=== PATIENT | female | born 1955 | race Caucasian/White ===

== ENCOUNTER → 2016-05-14 | Outpatient (CLI) | payer MEDICARE, OTHER ==
[~2016-05-14] MED LIST: BENA40TA54
--- NOTE | 2016-05-14 17:30 | RADRPT ---
PROCEDURE: XR Right hip and pelvis. CLINICAL INDICATION: Right hip pain. Pelvic pain. Postop. TECHNIQUE: Two views. Frontal pelvis and lateral right hip. COMPARISON: 03/25/2016. FINDINGS: There is no fracture or dislocation. The soft tissues are normal. There is a right hip total arthroplasty which appears satisfactory. There is also a left hip arthroplasty which appears satisfactory. There is no lytic or blastic lesion. The upper pelvis is not completely included on the image. IMPRESSION: 1. Satisfactory postoperative appearance of both hips. 2. No acute abnormality. RPTAT: QQ .Alexandr Finch MD, MD Date Time Electronically viewed and signed by .Alexandr Finch MD, MD on 05/14/2016 17:30 .R/
--- NOTE | 2016-05-14 19:38 | HKNOTE ---
DATE OF SERVICE: 05/14/2016 Now 3 weeks out following revision of her right hip replacement. She complains of a great deal of p ain. SHE IS ALLERGIC TO JUST ABOUT EVERYTHING. The Percocet no longer helps her. This is about th e only medication short of Dilaudid, which she "can take." She also has a burning pain over the ant erolateral aspect of the left thigh (opposite from the operated hip). PHYSICAL EXAMINATION: VITAL SIGNS: Blood pressure 190/90, temperature 98.7. The patient's wound has healed beautifully. Not the slightest sign of infection. MANAGEMENT: The patient was given a prescription for Dilaudid 2 mg p.o. q.4h. p.r.n. and Neurontin 100 mg p.o. t.i.d. and she will be seen again in 3 weeks' time for reevaluation. Dictated By: SIXTO COOK/MARIELA Conf#: [id number] DID#: [id number]
== END | disposition home or self-care (01) ==
LOC: HKI 15:38
DX: Z47.1 Aftercare following joint replacement surgery (principal); Z96.641 Presence of right artificial hip joint; G89.18 Other acute postprocedural pain; M79.652 Pain in left thigh
CPT/HCPCS: 73502; G0463

== ENCOUNTER → 2016-05-28 | Outpatient (CLI) | payer MEDICARE, OTHER ==
--- NOTE | 2016-05-28 17:26 | HKNOTE ---
DATE OF SERVICE: 05/28/2016 HISTORY OF PRESENT ILLNESS: The patient is a 71-year-old female who presents today for 6 week postoperative visit for right hip revision surgery due to ASR recall. Since the surgery, the patient states that her pain is controlled with Dilaudid 2 mg. The patient had adverse reactions with previous pain medications. The patient continues using cane for assisted ambulation. Continues limping secondary to discomfort. The patient does have complaints of weakness primarily to the lateral side of the right hip. Denies any falls since she was last seen. The patient also has complaints of right knee pain. She has difficulty straightening her leg completely at the right knee in regard to extension. She has also noticed swelling to the right knee. She also has complaints that at times the knee can lock on her which can create pain and limited mobility. PHYSICAL EXAMINATION: VITAL SIGNS: Blood pressure 153/73, temperature 98.6, pulse 87, respiratory rate 12. Height is 5 feet 7 inches, weight 180 pounds. RIGHT HIP: Wound is healing well with well-healed surgical scarring. The patient is limping on examination. Able to ambulate independently but likes to use single point cane as this is more comfortable for her. She does have significant limited range of motion in regard to flexion and especially abduction. Normal sensory examination to light touch. RIGHT KNEE: There is lack of 5 degree extension of the right knee with moderately limited flexion to the knee. Clicking to the knee is palpated with flexion. Continued discomfort to the right knee with examination. ASSESSMENT AND PLAN: 1. Physical therapy prescription provided for the patient for outpatient right hip PT. 2. The patient will follow up at 3 months postoperative in regard to the right hip for further evaluation as well as monitoring cobalt chromium levels. 3. The patient may discontinue DVT prophylaxis as well as hip restrictions. 4. In regard to the right knee, MRI ordered by Dr. Lara today for further evaluation in regard to suspected meniscal tearing. 5. Continue anti-inflammatories as needed for any pain complaints. 6. The patient may continue a single point cane for assisted ambulation but advised to trial walking independently if she feels comfortable and confident. 7. Dr. Lara advises that the patient follow up in 4 weeks after she has MRI of the right knee for MRI review. All the restrictions that the patient was taught in the hospital to prevent dislocation are now being discontinued. The patient will continue to use a crutch or a cane in the opposite hand as necessary and will discontinue the same once comfort levels allow it. Extremes of motion, such as lifting one foot onto the opposite thigh to clip toenails, were discouraged for at least another 6 weeks since there is a still a small danger of dislocation occurring. Long- term care of the hip replacement was discussed with the patient. The advice given was that stressful activities should be avoided since they decrease the life expectancy of the implant. Activities to be avoided include all types of impact sports such as running, jogging, tennis, racquetball, badminton, football , baseball, horseback riding, and others. The patient was advised that heavy lifting (more than 40 pounds) is dangerous for the implant and that weight lifting, jumping from heights, and falls can cause serious damage to the implant. The patient's attention was drawn to page 47 of the Arthritis Book. The patient was given our standard plastic card containing instructions for the use of prophylactic antibiotics as a guideline should infection develop anywhere in the body, there be the need for manipulation or scoping of the genitourinary tract or gastrointestinal tract, or for prophylaxis for dentistry. These instructions pertain for the rest of the patient's life. Dictated By: JANET CHURCH for SIXTO LARA MD, KP/MARIELA Conf#: [id number] DID#: [id number] MTDD
== END | disposition home or self-care (01) ==
LOC: HKI 14:28
DX: Z47.89 Encounter for other orthopedic aftercare (principal); M25.561 Pain in right knee; M25.461 Effusion, right knee
CPT/HCPCS: G0463

== ENCOUNTER → 2016-06-17 | Outpatient (CLI) | payer MEDICARE ==
--- NOTE | 2016-06-17 18:26 | HKNOTE ---
DATE OF SERVICE: 06/17/2016 The patient comes in with the MRI scan of her right knee for review. The MRI obtained on 06/14/[address] Naveed Lynch as showing "Suspected oblique tear of the posterior horn of th e medial meniscus communicating with the middle third meniscus inferiorly. Severe chondromalacia of the patella. Small joint effusion." MANAGEMENT: The patient continues to have significant symptoms suggesting an internal derangement. She was advised that the MRI is a miraculous technology but has a 5% chance of missing pathology or seeing pathology that is not there. Given the fact that she continues to have significant symptoms in her knee, we discussed the possibility of doing an arthroscopic operation of the right knee. Bijan palacios has just recently recovered from her hip surgery, and I recommended that she wait maybe 2 months b efore we do it. The patient will decide whether she wishes to proceed now or delay for awhile. She will call if and when she wishes to consider proceeding with surgery. Otherwise, will see her as p er her previously given appointment. Dictated By: SIXTO COOK/MARIELA Conf#: [id number] DID#: [id number]
== END | disposition home or self-care (01) ==
LOC: HKI 14:18
DX: Z47.89 Encounter for other orthopedic aftercare (principal)
CPT/HCPCS: G0463

== ENCOUNTER → 2016-08-21 | Outpatient (CLI) | payer MEDICARE ==
--- NOTE | 2016-08-22 06:59 | HKNOTE ---
DATE OF SERVICE: 08/21/2016 The patient complains of pain in both hips and her right knee. The patient is known to have an inte rnal derangement of the right knee and will need to have an arthroscopic operation on the knee. She continues to have pain in both hips. In particular, she complains of pain in the right groin. She states that the pain is constantly present. She has not had any recent infections, but she feel s that she may have been "feverish." Note that this patient is extremely low quinonez and, if anything, under exaggerates her complaints. She has lost a great deal of weight, "because I am just not hungry." PHYSICAL EXAMINATION: EXTREMITIES: The patient walks with a severe antalgic/(?) gait. It is difficult for her to get up on the examination couch. RIGHT KNEE: Unchanged since the last time. RIGHT HIP: A full range of motion, but pain in the right groin at limits of motion. LEFT HIP: An excellent range of motion with minimal pain. VITAL SIGNS: Height 5 feet 7 inches, weight 180 pounds. Blood pressure 132/72, temperature 99.2. MANAGEMENT: Under sterile conditions, the right hip was aspirated of 6 mL of slightly blood-tinged clear fluid which is being sent for cell count, culture, and sensitivity. The aspiration was follow ed by an injection of 5 mL of 2% lidocaine into the right hip joint. This immediately gave her comp lete relief of pain in the right hip. IMAGING: Plain x-rays of her pelvis and right hip were reviewed. It is difficult to determine if t he right acetabular component is well-attached to the bone. PLAN: 1. The patient is being referred for a [place] MRI scan of the right hip. 2. CBC, sed rate, and C-reactive protein. 3. Serum cobalt and chromium. The patient will be seen again in a week's time for reevaluation. Dictated By: SIXTO COOK/MARIELA Conf#: [id number] DID#: [id number]
--- NOTE | 2016-08-22 09:30 | RADRPT ---
PROCEDURE: XR AP pelvis / bilateral hips. CLINICAL INDICATION: Hip pain TECHNIQUE: AP pelvis/lateral right and left hip views available for review. COMPARISON: 05/14/2016 FINDINGS: There are bilateral total hip replacements. There is normal mineralization, architecture and alignment. There is no evidence of loosening of th e prosthesis. There is no evidence of hardware failure. No fractures, dislocation or osseous lesions are identified. The joints are unremarkable. There are normal soft tissues. IMPRESSION: Bilateral total hip replacements. Otherwise unremarkable examination. RPTAT: HGDB .Asher Wright MD, MD Date Time Electronically viewed and signed by .Asher Wright MD, MD on 08/22/2016 09:30 .B/
== END | disposition home or self-care (01) ==
LOC: HKI 14:22
DX: M23.91 Unspecified internal derangement of right knee (principal); M25.552 Pain in left hip; M25.551 Pain in right hip
CPT/HCPCS: 20610; 73522; G0463

== ENCOUNTER → 2016-09-24 | Outpatient (CLI) | payer MEDICARE ==
--- NOTE | 2016-09-25 04:49 | HKNOTE ---
DATE OF SERVICE: 09/24/2016 HISTORY OF PRESENT ILLNESS: The patient continues to complain of pain in her right hip. There has been no change in the degree of pain. It has certainly not gotten any worse. She comes in for revi ew of her labs and her MRI scan. She continues to have pain in the right groin which she seems to g et with every step that she takes. Sometimes she gets the pain at night. She takes Dilaudid 2 mg 2 or 3 times a day. PHYSICAL EXAMINATION: She walks with a cane. She has an antalgic gait. Examination of the right t high shows no evidence of any swelling around the thigh or inflammation. LABORATORY DATA: Fluid aspirated from her right hip at the last visit is reported as showing no afia erobes or aerobic bacteria grown from the fluid. Neutrophils 68%. Sedimentation rate 35. C-reacti ve protein 2.45. The MARS-CAT scan of the right hip dated 09/10/[address] Lynch as showing "components intact. Acetabular prosthetic component appears intact. Posterolateral fluid collection which may be in continuity with joint trochanteric bursa measuring 10 x 7.5." I called Dr. Lynch to review these pictures with him. He does not see any evidence of loosening or nonbonding of the implants. MANAGEMENT: The patient is reassured there is no sign of infection. I am greatly concerned about t he fact that she has ongoing pain, and despite the MRI scan, I am worried that the socket may not be bonded properly to the bone. MANAGEMENT: The patient's surgery was relatively recent [April]. My recommendation is that we c ontincira with a conservative program and she her again in 4 months' time for reevaluation. If she co ntinues to have pain, I will probably refer her to a tertiary care center for reoperation on her rig ht hip. Dictated By: SIXTO COOK/MARIELA Conf#: [id number] DID#: [id number]
== END | disposition home or self-care (01) ==
LOC: HKI 14:58
DX: M25.551 Pain in right hip (principal)
CPT/HCPCS: G0463

== ENCOUNTER → 2017-01-20 | Outpatient (CLI) | payer MEDICARE ==
--- NOTE | 2017-01-20 17:29 | RADRPT ---
PROCEDURE: XR Pelvis and bilateral hips. CLINICAL INDICATION: Pelvic pain. Postop. TECHNIQUE: Four views. Frontal and lateral right hip. Frontal and lateral left hip. COMPARISON: 01/22/2016. FINDINGS: There are bilateral total hip arthroplasties. These appear satisfactory with no fracture, dislocati on or loosening. There is no lytic lesion. The soft tissues are normal. IMPRESSION: 1. Satisfactory postoperative appearance of the hips. RPTAT: QQ .Alexandr Finch MD, MD Date Time Electronically viewed and signed by .Alexandr Finch MD, MD on 01/20/2017 17:29 .R/
--- NOTE | 2017-01-21 04:39 | HKNOTE ---
DATE OF SERVICE: 01/20/2017 HISTORY OF MAIN COMPLAINT: The patient continues to complain of pain in her right hip, but it has very become very much worse since August and especially so in the past 1-1/2 months. The patient gets pain in the hip, 24/11. She walks with a cane and cannot go more than about 2 blocks. She gets pain with every step. She takes Dilaudid for the pain, and that does not give her sufficient relief. The pain is localized to the right groin with some radiation down the anterior thigh. PHYSICAL EXAMINATION: GENERAL: A 61-year-old female, who is slightly overweight. VITALS: Height foot 7. Weight 185 pounds. Blood pressure 140/70 and temperature 98.9. RIGHT HIP EXAMINATION: No external sign of infection or inflammation. The right hip has a full range of motion. Pain in the groin at the upper limits of motion. IMAGING: Plain x-rays of the right hip were obtained today. These show some lucency around the acetabular component but, if anything, less than on previous x-rays. DISCUSSION: The fixation for right acetabular component, I felt, was not satisfactory from the get go. This is because she had minimal pain to work with on the medial side of the socket. She is surprised that the socket has held up for so long following her surgery. I suspect that the socket has come loose and will need to be revised. We obviously have to rule out infection first. Under sterile conditions, multiple attempts were made to aspirate the right hip under local anesthetic, but despite the fact that I am fairly certain the needle was in the hip joint, no fluid could be obtained. MANAGEMENT: 1. She is being referred for an aspiration of the right hip under fluoroscopy. 2. MARS CT scan of the right hip is being ordered 3. CBC, sed rate, and C-reactive protein ordered. 4. The patient given a new prescription for Dilaudid. 5. She will be seen again in a week's time for re-evaluation. Dictated By: Percy Gann MD /ophelia/gina /Document#: [id number]
== END | disposition home or self-care (01) ==
LOC: HKI 13:57
DX: M25.551 Pain in right hip (principal)
CPT/HCPCS: 20610; 73522; G0463

== ENCOUNTER → 2017-02-05 | Outpatient (CLI) | payer MEDICARE ==
--- NOTE | 2017-02-05 15:13 | RADRPT ---
PROCEDURE: XR Right hip and pelvis. CLINICAL INDICATION: Right hip pain. Pelvic pain. TECHNIQUE: Two views. Frontal pelvis and lateral right hip. COMPARISON: 01/20/2017. FINDINGS: There are bilateral total hip arthroplasties which appears satisfactory. There is no dislocation or loosening. There is a recent nondisplaced fracture of the right inferior pubic ramus. There is no ot her fracture. There is no lytic or blastic lesion. The upper pelvis is not included on the images. IMPRESSION: 1. Satisfactory postoperative appearance of both hips. 2. Recent nondisplaced fracture of the right inferior pubic ramus. 3. Otherwise unremarkable study. RPTAT: QQ .Alexandr Finch MD, MD Date Time Electronically viewed and signed by .Alexandr Finch MD, on 02/05/2017 15:12 .R/
--- NOTE | 2017-02-06 11:06 | HKNOTE ---
DATE OF SERVICE: 02/05/2017 RADIOLOGY: Patient went to the [facility] for an aspiration of the right hip yesterday . The radiologist was only able to get "a very small amount of fluid from my hip." Fluid was sent for culture and sensitivity. Note that the CAT scan that she obtained on 01/27/2017 is reported as showing "a 16 x 12 mm area. The fluid was sent for culture and sensitivity. A CAT scan of the [facility] t hip obtained on 01/27/[address] Low Lynch as showing "the prosthesis is intact. " Fixation screw intact. Along the superomedial aspect of the prosthesis there is a 16 x 12 mm ar ea with no significant overlying cortical bone present. Weightbearing portion of the hip prosthesis , however, is firmly attached to the underlying acetabulum without prosthetic loosening. The femoral prosthetic component shows no fracture. No CAT scan evidence of prosthetic loosening. HISTORY OF MAIN COMPLAINT: Patient took a fall 1 week ago. She simply was standing speaking to a _ ____ when she suddenly felt a severe jab of pain in the joint. This caused her to fall. She landed on her right arm. She was taken to the [facility] and from there to the [facility] Room where she was found to have a fracture of her wrist and thumb. She subsequently was refer red to who applied a cast to the arm. PRESENT COMPLAINTS: The patient gets pain in the right groin with every step that she takes. She also has pain in the area of the inferior pubic ramus on the right side since she took the fall. IMAGING: Plain x-rays of the pelvis and right hip obtained today show that she has a recent undispl aced fracture of the right inferior pubic ramus. DISCUSSION: Despite the fact that the CAT scan of her right acetabulum shows good attachment to the bone, even if there is a 16 x 12 area with no significant overlying cortex medially. DIAGNOSIS: 1. Possible loose right total hip acetabular component with deficient medial wall. 2. Undisplaced fracture of the right inferior pubic ramus. DISCUSSION: Despite the benign appearance of the CAT scan, having observed this patient in the [facility] so long as to her hip revision in constant pain since 04/07/2016, I do believe that the acetabula r component is probably loose and in need of reconstruction. MANAGEMENT: The patient is being referred to Dr. Kyle Haley for an evaluation and for a consult ation and consideration for revision of the socket. The inferior pubic ramus fracture is not in any need of treatment. Patient was given a prescription for Dilaudid 2 mg twice a day for pain. Dictated By: SIXTO COOK/MARIELA Conf#: [id number] DID#: [id number]
== END | disposition home or self-care (01) ==
LOC: HKI 09:40
DX: S32.591D Other specified fracture of right pubis, subsequent encounter for fracture with routine healing (principal); W19.XXXD Unspecified fall, subsequent encounter
CPT/HCPCS: 73502; G0463

== ENCOUNTER → 2017-03-11 | Outpatient (CLI) | payer MEDICARE ==
--- NOTE | 2017-03-12 04:33 | HKNOTE ---
DATE OF SERVICE: 03/11/2017 HIP AND KNEE CLINIC CONSULTATION REFERRING PHYSICIAN: Remi Gann MD CHIEF COMPLAINT: Right hip pain. HISTORY OF PRESENT ILLNESS: The patient is a 61-year-old female who presents with a recent history of right total hip arthroplasty revision for ASR component failure and an associated metalosis with ALVAL reaction. The patient was doing well initially after her revision and even had normalization of her cobalt and chromium ions, but however, over the past several months, has noted persistent sev ere right hip pain. The pain has become so severe now she has actually fallen and fractured her upp er extremities. The pain is only responsive to Dilaudid for pain control, and is not relieved by an y other conservative measures. She denies any fever, chills or nausea, vomiting. PAST MEDICAL HISTORY: Hypertension. PAST SURGICAL HISTORY: As above. MEDICATIONS: 1. Benazepril 2. Neurontin. 3. Dilaudid p.r.n. ALLERGIES: 1. PENICILLIN. 2. NSAIDS. 3. NOVOCAIN. 4. TYLENOL. 5. SULFA DRUGS. 6. OXYCODONE. 7. COUMADIN. 8. LATEX. 9. TEGADERM. 10. ADHESIVE TAPES, EXCEPT FOR TRANSPORE TAPE. SOCIAL HISTORY: She does not smoke or drink. REVIEW OF SYSTEMS: Negative as per above. PHYSICAL EXAMINATION: GENERAL: Alert and oriented, no acute distress; however, she does appear to be uncomfortable becaus e of her right hip. RIGHT LOWER EXTREMITY: The skin is intact. There is mild tenderness to palpation, as well as a mil dly palpable fluctuant mass at the posterolateral right hip. Range of motion is significantly limit ed with severe pain upon hip flexion and internal rotation. There is approximately 10 mm of shorten ing of the right lower extremity. The limb is grossly neurovascularly intact. IMAGIN01/27/[address] shows a 16 x 12 mm area of bone loss around the superior and media l aspect of the acetabular prosthesis; however, both femoral and acetabular components appear to be very well fixed with no clear evidence of loosening. 09/10/2016 right hip MRI also demonstrates wel l placed and well fixed components; however, there is a 10 x 7 x 5 cm lateral fluid collection that is in continuity with both the joint and the trochanteric bursa. Serum labs collected 08/21/2016 sh ow cobalt levels of 1.7 (high), and chromium levels 3.3 (high). ESR equals 2, CRP equals 0.2. 100 08/2016 right hip aspiration shows total cell count of 20 with 68% neutrophils. 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 PLAN: 1. The patient instructed about all options, recommending surgical revision through modular compone nt exchange, converting it to a ceramic head, changing the acetabular cup only if it is noted to be loose upon direct examination. She is instructed that most likely this will result in a mild shorte valentino of the limb given the position of the components and the limitations of the ceramic neck length s. She was instructed about the risks of a revision including, but not limited to, pain, bleeding, infection, stiffness, dislocation, fracture, nerve vessel or tendon damage, loosening of the prosthe sis, persistent pain, need for multiple surgeries, nerve vessel or tendon damage, deep venous thromb osis with pulmonary embolism and the risks of anesthesia. She understands all these risks and stron gly wishes to proceed with surgery as stated. 2. Preoperative internal medicine clearance. 3. To the operating room for right total hip arthroplasty revision with conversion to a ceramic hea d and exchange of polyethylene socket liner versus revision of the socket as indicated. Dictated By: NAVI JACOBS/NTS Conf#: [id number] DID#: [id number] CC: SIXTO GANN MD;*EndCC*
== END | disposition home or self-care (01) ==
LOC: HKI 13:46
PROVIDERS: ATTEND Orthopaedic Surgery
DX: M25.551 Pain in right hip (principal); I10 Essential (primary) hypertension; Z88.0 Allergy status to penicillin; Z88.2 Allergy status to sulfonamides
CPT/HCPCS: G0463

== ENCOUNTER → 2017-03-23 | Outpatient (CLI) | END | disposition home or self-care (01) ==

== ENCOUNTER 2017-03-25 07:37 | Inpatient (IN) | payer MEDICARE ==
--- NOTE | 2017-03-19 07:07 | PREOPHP ---
DATE OF ADMISSION: 03/25/2017 The patient is to have surgery with Dr. Kyle Alfred 03/25/2017 at [facility] . CONSULTATION REQUESTED BY: Dr. Kyle Alfred. REASON FOR CONSULTATION: Medical evaluation and clearance of a 61-year-old woman about to undergo s urgery. Thank you, Dr. Alfred, for participating and allowing us to participate in the care of our patient. HISTORY OF PRESENT ILLNESS: Rach Sanchez, a 61, soon to be 62-year-old woman, has had issues with her hips. 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 In terms of past surgical history other than that, she has had torn ligaments right and left ankle which was operated on. She also fractured her right wrist and thumb which required surgical reduction and this was do ne earlier this year and her only medical hospitalization was for dehydration in 2006. And as menti billd above, she has fractured her right and left wrist as well. CURRENT MEDICATIONS: Include: 1. Benazepril 40 mg b.i.d. 2. She also takes Neurontin 100 mg t.i.d. 3. And some p.r.n. medications. ALLERGIES: SHE IS ALLERGIC TO: 1. PENICILLIN. 2. NOVOCAIN. 3. ALMOST ALL NONSTEROIDAL ANTI-INFLAMMATORY MEDICATIONS. 4. TYLENOL. 5. LATEX. 6. ADHESIVE TAPE. 7. COUMADIN. General health has been relatively good other than her joints. SOCIAL HISTORY: The patient is single, has no children. Does not smoke or drink alcohol nor does s he drink any coffee and usually has no difficulty sleeping at night. FAMILY HISTORY: Father at age 69 of an MS, mother 85, had issues with dementia subsequently as a result of that. In the extended family there is diabetes, heart, cancer and hypertension. No th yroid and no strokes to her knowledge. She has 2 sisters who are alive and well. REVIEW OF SYSTEMS HEENT: Periodic headaches. CARDIORESPIRATORY: Denies any chest pain or shortness of breath. GASTROINTESTINAL: No melena or hematemesis. GENITOURINARY: No urgency, frequency. GYNECOLOGIC: Post-menopause, up to date. MUSCULOSKELETAL: Positive for right hip pain. NEUROPSYCHIATRIC: Unremarkable. GENERAL HEALTH: As above. PHYSICAL EXAMINATION: VITAL SIGNS: The patient's blood pressure was 125/82, pulse was 73 and regular, respirations were 1 8, temperature 97.2, height 5 feet 7 inches, weight 182 pounds. GENERAL: The patient was noted to be a well-developed, well-nourished female, alert and cooperative , in no apparent acute distress, oriented to time, place and person. HEAD, EARS, EYES, NOSE AND THROAT: Head was atraumatic. Eyes: Pupils were equal, reactive to ligh t and accommodation. Fundi were benign. Tympanic membranes were unremarkable. Nose was negative. Mouth was unremarkable. Fair oral hygiene was present. NECK: Supple without any rigidity. Trachea was midline. Thyroid was unremarkable. Neck veins wer e flat. Carotid pulses were equal. No bruits were heard. BACK: Unremarkable. CHEST: Symmetrical. BREASTS AND AXILLARY: Did not reveal any masses. LUNGS: Clear to percussion and auscultation. HEART: PMI was at the fifth intercostal space at the midclavicular line. Regular sinus rhythm was noted. No significant murmurs, rubs, or gallops being elicited. ABDOMEN: Soft, good bowel sounds were noted. No significant organomegaly, masses, or tenderness. GENITALIA: Pelvirectal exam per risk management manager, up to date. EXTREMITIES: Did not reveal any clubbing or cyanosis. There was still a residual cast on the right wrist. Scars from prior surgery were noted. Peripheral pulses were physiologic. SKIN: Moist and warm without any eruptions. No gross lymphadenopathy was noted. NEUROLOGIC: Grossly intact. IMPRESSION: 1. 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 2. Fractured right wrist postop. 3. Hypertension. 4. Stable health. Review of laboratory and other data revealed the following: Patient's chemistry panel including zac ctrolytes, glucose, BUN, creatinine, calcium and phosphorus, liver function tests were basically nor mal. The patient's alkaline phosphatase was minimally elevated at 116, probably a bony etiology. S pacheco iron was slightly low. CBC, UA, PT and PTT were within normal limits. The patient's EKG was n ormal. Chest x-ray revealed a kyphotic deformity and degenerative joint disease, but no acute infil trates being noted. DISCUSSION: Dr. Alfred I see no contraindication in this patient undergoing current proposed surge ry under desired form of anesthesia and will follow her along with you during her stay at [facility]. Thank you again, Dr. Alfred, for participating and allowing us to participate in care of our patien t. Dictated By: DAVID GATICA MD SS/MARIELA Conf#: [id number] DID#: [id number]
[~2017-03-25] VITALS: Ht 170.2 cm; Wt 80.5 kg
[2017-03-25] VITALS (29 sets, daily range): BP systolic 108–172; BP diastolic 55–90; PULSE 66–105; RESP 10–41; Ht 170.2 cm; Wt 80.5 kg
[2017-03-25] MEDS ORDERED: BENA40TA41 PO (08:27)
[2017-03-25] MEDS ORDERED: GABA100C14 PO (08:28)
[2017-03-25] MEDS ORDERED: HYDR2TAB36 PO (08:29)
[2017-03-25] MEDS ORDERED: CHOL200073 PO (08:30)
[2017-03-25] MEDS ORDERED: CLINDAMYCIN 900 MG/D5W (PMX) 50 ML IVPB SCH (08:30)
[2017-03-25] MEDS ORDERED: ROCURONIUM 50 MG INJ ONE (08:38)
[2017-03-25] MEDS ORDERED: PROPOFOL 20 ML ONE (08:38)
[2017-03-25] MEDS ORDERED: DEXAMETHASONE 4 MG/ML 1 ML INJ ONE (08:39)
[2017-03-25] MEDS ORDERED: GLYCOPYRROLATE 0.4 MG INJ ONE (08:39)
[2017-03-25] MEDS ORDERED: MIDAZOLAM 1 MG/ML 2 ML INJ ONE (08:39)
[2017-03-25] MEDS ORDERED: NEOSTIGMINE 3 MG/3 ML SYRINGE ONE (08:39)
[2017-03-25] MEDS ORDERED: FENTAnyl 50 MCG/ML VIAL ONE (08:39)
[2017-03-25] MEDS ORDERED: ONDANSETRON 4 MG INJ ONE (08:39)
[2017-03-25] MEDS ORDERED: CEFAZOLIN 1 GM INJ ONE (08:39)
[2017-03-25] MEDS ORDERED: ETOMIDATE 20 MG INJ ONE (08:40)
[2017-03-25] MEDS ORDERED: morphine SULFATE/PF (10 MG/10 ML) INJ ONE (08:40)
[2017-03-25] MEDS ORDERED: PROPOFOL 100 ML ONE (08:40)
[2017-03-25] MEDS ORDERED: TRANEXAMIC ACID 1,000 MG in SOD CHLORIDE 0.9% 100 ML IV ONE ×4 (11:00)
--- NOTE | 2017-03-25 11:30 | HPN ---
Date/Time of Note Date/Time of Note DATE: 03/25/17 TIME: 11:29 Interval H&P Admission Note Pt. seen H&P reviewed: No system changes NAVI TEE Mar 25, 2017 11:29
[2017-03-25] MEDS ORDERED: TOBRAMYCIN 1.2 GM POWDER ONE (11:39)
[2017-03-25] MEDS ORDERED: POLYMYXIN B 500000 UNIT INJ ONE (11:39)
[2017-03-25] MEDS ORDERED: VANCOMYCIN 1 GM INJ ONE (11:39)
[2017-03-25] MEDS ORDERED: BACITRACIN 50000 UNITS INJ ONE ×2 (12:09→13:14)
[2017-03-25] MEDS ORDERED: CLINDAMYCIN 900 MG/D5W (PMX) 50 ML IVPB ONE (12:47)
[2017-03-25] MEDS ORDERED: POLYMYXIN/BACITRACIN 1L IRRIG ONE (13:21)
[2017-03-25] MEDS ORDERED: NALBUPHINE HCL (10 MG/1 ML) INJ IV PRN (13:30)
[2017-03-25] MEDS ORDERED: ZOLPIDEM 5 MG TAB PO PRN (13:30)
[2017-03-25] MEDS ORDERED: hydrALAzine 20 MG INJ IV PRN (13:30)
[2017-03-25] MEDS ORDERED: MEPERIDINE 25 MG INJ IV PRN (13:30)
[2017-03-25] MEDS ORDERED: MIDAZOLAM 1 MG/ML 2 ML INJ IV PRN (13:30)
[2017-03-25] MEDS ORDERED: DIPHENHYDRAMINE 50 MG INJ IV PRN ×2 (13:30)
[2017-03-25] MEDS ORDERED: ONDANSETRON 4 MG INJ IV PRN ×2 (13:30)
[2017-03-25] MEDS ORDERED: morphine 2 MG INJ IV PRN (13:30)
[2017-03-25] MEDS ORDERED: ALBUTEROL 0.083% (NEB) 2.5 MG/3 ML AMP HHN PRN (13:30)
[2017-03-25] MEDS ORDERED: NALOXONE (0.4 MG/ML) INJ IV PRN (13:30)
[2017-03-25] MEDS ORDERED: morphine 4 MG/ML VIAL IV PRN (13:30)
[2017-03-25] MEDS ORDERED: HYDROmorphONE (0.2 MG/ML) 10ML SYG IV PRN ×3 (13:30)
[2017-03-25] MEDS ORDERED: LABETALOL HCL 20MG INJ IV PRN (13:30)
[2017-03-25] MEDS ORDERED: IPRATROPIUM (NEB) 0.5 MG/2.5 ML AMP HHN PRN (13:30)
[2017-03-25] MEDS ORDERED: FENTAnyl 50 MCG/ML VIAL IV PRN ×3 (13:30)
[2017-03-25] MEDS ORDERED: TRIMETHOBENZAMIDE 100 MG/ML VIAL IM PRN ×2 (13:30)
[2017-03-25] MEDS ORDERED: EPHEDrine SULFATE 50 MG/5 ML SYG IV PRN (13:30)
[2017-03-25] MEDS ORDERED: SUGAMMADEX SODIUM 200 MG/2 ML VIAL IV ONE (14:22)
--- NOTE | 2017-03-25 14:45 | OPR ---
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 Operation/Procedure Performed 1) Right Total Hip Arthroplasty Revision (femoral and acetabular sides) 2) Right Sciatic Nerve Neuroplasty 3) Right Ilium Hardware Removal (3 iliac screws) 4) Right Hip Synovectomy (complete) 5) Right Hip Complex Layered Wound Closure (15 cm) Surgeon see signature line [employer] Tutu CHURCH Anesthesia Type: MAC, spinal Estimated Blood Loss: 50 - 100 ml's Transfusion none Specimen Femoral head (implant) Grafts/Implants Depuy Ultrex Polyethylene Liner (+4, neutral), Ceramic Head (+12, 36 mm) Tubes/Drains None Complications none Pt Condition Post Procedure: stable Disposition: PACU Procedure Description Indications for the procedure: Patient is a 62-year-old female who underwent right total hip arthroplasty for ASR cup metal ion reaction who presents with persistent swelling and disability and inability to ambulate, with elevated metal ion levels. Full orthopedic workup was obtained which revealed likely trunionosis vs cup loosening. The patient was given the options of continued conservative management versus surgical revision, recommending surgery. She was told surgical risks including but not limited to pain bleeding infection stiffness recurrent loosening, instability, malalignment, fracture, dislocation , limb length discrepancy, nerve / vessel / tendon damage, deep venous thrombosis with pulmonary embolism, and the risk of anesthesia. She understands all of her options and their inherent risks and benefits, is in a position to make an informed decision regarding her further care, and strongly wishes to proceed with surgery as stated Description of the procedure patient was taken to the surgical theater and placed in the supine position on the operating table all pressure points were padded appropriately and induction of general sedation was performed after successful insertion of spinal block. The patient was turned to the lateral position and secured with the peg board system. All pressure points were padded. The right hindquarter was then prepped and draped in a sterile manner. A full surgical timeout was performed, verifying patient name medical record number procedure surgical site and other distinguishing factors. Using a 10 blade scalpel 15 cm incision was made at the lateral hip longitudinally in line with the previous surgical incision. Subcutaneous tissues were dissected sharply down to ths fascial layer which was then incised in line with the skin incision. The sciatic nerve was identified, dissected free , and protected. Posterior capsulotomy was performed, and copious amounts of benign, clear fluid extruded. No evidence of infection was seen. The hip joint was dislocated and the femoral head was removed with the quinonez elevator and mallet , with care not to damage the trunion. The trunion appeared well preserved without significant damage. The femoral stem was inspected and noted to be well fixed and in good position. The acetabulum was exposed and the three acetabular screws were removed. The acetabular shell was then tested extensively, and noted to be very well fixed with no signs of loosening. The acetabular shell was noted to be in optimum position. The decision was made to proceed with modular component exchange only , to a pure ceramic head, with head-trunion sealent. The patient was informed preoperatively that a pure ceramic head would be used, even though the titanium sleeve is recommended in the revision setting; however, the patient developed problems with the previous tianium sleeve on the cobalt chrome trunion, therefore the decision was made to perform this different implantation, in order to avoid the morbidity of complete femoral stem removal. The patient agreed fully to this plan. Careful synovectomy was performed in the hip joint was copiously irrigated. The acetabulum was exposed and the final aceabular liner was impacted into position and locked appropriately. The pure ceramic head was forcefully impacted very forcefully onto the femoral trunion. The head-trunion interface was cleaned and dried, and then sealed circumferentially with Dermabond. The Dermabond was allowed to dry and the junction was further sealed with bone wax. Care was taken to assure the sealents did not interfere with the articulation. Meticulous hemostasis was achieved with compression electrocautery. The wound was copiously irrigated with lavage saline as well as dilute betadine - peroxide solutions. The capsule was then closed securely with #1 Vicryl figure- of-eight interrupted suture. The wound was further closed in layers using 3-0 Vicryl subdermal suture for the subdermal layer and running subcuticular 3-0 Monocryl suture for the skin. The incision was dressed with Dermabond and Aquacel Ag occlusive surgical dressing. The patient tolerated procedure well and there were no intraoperative complications. Patient emerged from anesthesia without difficulty and was transferred to the recovery room in stable and satisfactory condition with plans for transfer to the surgical floor. The findings and procedure were discussed with the patient's son at the conclusion of the case and according to the patient's wishes. NAVI TEE Mar 25, 2017 14:41
[2017-03-25] MEDS ORDERED: HYDROCODONE/APAP (10/325) TAB PO PRN (15:00)
[2017-03-25] MEDS: SENNA/DOCUSATE NA (8.6MG/50MG) TAB PO SCH ×2 (15:00→21:57)
[2017-03-25] MEDS ORDERED: ACETAMINOPHEN 500 MG TAB PO PRN (15:00)
[2017-03-25] MEDS ORDERED: MAGNESIUM HYDROXIDE 30ML CUP PO PRN (15:00)
[2017-03-25] MEDS ORDERED: CEFAZOLIN 1 GM/50 ML (PMX) 50 ML IVPB SCH (15:00)
--- NOTE | 2017-03-25 15:21 | CONS ---
Date/Time of Note Date/Time of Note DATE: 03/25/17 TIME: 15:06 Consult Date/Type/Reason Admit Date/Time Mar 25, 2017 at 07:37 Initial Consult Date 03/17/2017 Type of Consultation: internal medicine consultation Reason for Consultation pre-op medical evaluation and clearance Ordering Provider: NAVI ETE Subjective post op alert complaining of some congestion post op otherwise doing well Objective Vital Signs Date Time Temp Pulse Resp B/P Pulse Ox O2 Delivery O2 Flow Rate FiO2 03/25/17 14:47 98.1 03/25/17 14:46 76 14 137/68 100 Nasal Cannula 2.0 Exam vss stable heent negativ lungs some rhonchi cor regular rhythm Results/Medications Medications Current Medications Clindamycin HCl/ Dextrose (Cleocin 900 Mg/ D5W (Pmx)) 50 ml @ 50 mls/hr PREOP IVPB ; Start 03/25/17 at 08:30; Stop 03/25/17 at 23:00 Morphine Sulfate (morphine) 2 mg Q2H PRN IV PAIN LEVEL 1-5; Start 03/25/17 at 13:30 Morphine Sulfate (morphine) 4 mg Q2H PRN IV PAIN LEVEL 6-10; Start 03/25/17 at 13:30 Diphenhydramine HCl (Benadryl) 25 mg Q4H PRN IV PRURITUS; Start 03/25/17 at 13 :30 Nalbuphine HCl (Nubain) 10 mg Q4H PRN IV PRURITUS; Start 03/25/17 at 13:30 Ondansetron HCl (Zofran Inj) 4 mg Q6H PRN IV NAUSEA AND/OR VOMITING; Start at 13:30 Trimethobenzamide HCl (Tigan) 200 mg Q6H PRN IM NAUSEA AND/OR VOMITING; Start 03/25/17 at 13:30 Naloxone HCl (Narcan) 0.2 mg Q2M PRN IV FOR RESP RATE 8 OR LESS; Start at 13:30 Benazepril HCl (Lotensin) 40 mg BID PO ; Start 03/25/17 at 21:00 Cholecalciferol (Vitamin D) 2,000 unit DAILY PO ; Start 03/26/17 at 09:00 Gabapentin 100 mg 100 mg TID PO ; Start 03/25/17 at 21:00 Cefazolin Sodium (Ancef 1 Gm/50 ml (Pmx)) 50 ml @ 100 mls/hr Q8H IVPB ; Start 03/25/17 at 15:00; Stop 03/26/17 at 07:29; Status UNV Senna/Docusate Sodium (Senokot-S) 1 tab BID PO ; Start 03/25/17 at 15:00; Status UNV Simethicone (Mylicon) 80 mg TID PRN PO DISTENSION/GAS/BLOATING; Start at 15:00; Status UNV Magnesium Hydroxide (Milk Of Mag) 30 ml BID PRN PO CONSTIPATION; Start at 15:00; Status UNV Acetaminophen 1000 mg 1,000 mg Q4H PRN PO PAIN LEVEL 1-5; Start 03/25/17 at 15 :00; Status UNV Lactated Ringer's (Lr) 1,000 ml @ 100 mls/hr Q10H IV ; Start 03/25/17 at 14:45 ; Status UNV Aspirin (Ecotrin) 325 mg BID PO ; Start 03/26/17 at 09:00; Status UNV Acetaminophen/ Hydrocodone Bitart ([place]on (10/325)) 1 tab Q4H PRN PO PAIN; Start 03/25/17 at 15:00; Status UNV Hydromorphone HCl (Dilaudid) 1 mg Q3H PRN IV PAIN LEVEL 4-7; Start 03/25/17 at 15:00; Status UNV Assessment/Plan Chief Complaint/Hosp Course congestion post op thr revision right Problems: Additional Assessment/Plan post 2nd total hip revision right hip history of hypertension and djd DAVID GATICA MD Mar 25, 2017 15:19
[2017-03-25] MEDS: LACTATED RINGER'S 1,000 ML IV SCH (17:52)
[2017-03-25] MEDS ORDERED: BENAZEPRIL 40 MG TAB PO SCH (21:00)
[2017-03-25] MEDS: GABAPENTIN 100 MG CAP PO SCH (21:57)
[2017-03-25] MEDS: PATIENT'S OWN MEDICATION PO SCH (22:02)
[2017-03-25] MEDS: CLINDAMYCIN 600 MG/D5W (PMX) 50 ML IVPB SCH (22:02)
[2017-03-26] MEDS: LACTATED RINGER'S 1,000 ML IV SCH ×3 (00:45→20:45)
[2017-03-26] MEDS: HYDROmorphONE 1 MG/ML SYG IV PRN ×4 (03:56→21:24)
[2017-03-26 05:24] LABS: BASOPHILS % 0.1 % (0.0-2.0); HEMOGLOBIN 11.6 g/dl (12.0-16.0); LYMPHOCYTES # 1.4 10^3/ul (0.8-2.9); LYMPHOCYTES % 9.6 % (15.0-51.0); MEAN CORPUSCULAR HEMOGLOBIN 25.4 pg (29.0-33.0); MEAN CORPUSCULAR HGB CONC 32.2 g/dl (32.0-37.0); MEAN CORPUSCULAR VOLUME 78.8 fl (82.0-101.0); MEAN PLATELET VOLUME 10.7 fl (7.4-10.4); MONOCYTE # 0.7 10^3/ul (0.3-0.9); NEUTROPHIL # 12.2 10^3/ul (1.6-7.5); NEUTROPHILS % 84.8 % (39.0-77.0); PLATELET COUNT 307 10^3/UL (140-415); RED BLOOD COUNT 4.57 10^6/ul (4.20-5.40); RED CELL DISTRIBUTION WIDTH 13.5 % (11.5-14.5); WHITE BLOOD COUNT 14.3 10^3/ul (4.8-10.8)
[2017-03-26] MEDS: CLINDAMYCIN 600 MG/D5W (PMX) 50 ML IVPB SCH ×3 (05:33→21:24)
[2017-03-26 05:39] LABS: CREATININE 0.8 mg/dl (0.44-1.00); POTASSIUM 4.4 mmol/L (3.5-5.1)
[2017-03-26 07:52] VITALS: BP 122/75; RESP 18
[2017-03-26] MEDS: ASPIRIN (EC) 325 MG TAB PO SCH ×2 (08:50→21:20)
[2017-03-26] MEDS: PATIENT'S OWN MEDICATION PO SCH ×2 (08:51→21:20)
[2017-03-26] MEDS: HYDROmorphONE 2 MG TAB PO PRN (08:52)
[2017-03-26] MEDS: SENNA/DOCUSATE NA (8.6MG/50MG) TAB PO SCH ×2 (08:52→21:20)
[2017-03-26] MEDS: GABAPENTIN 100 MG CAP PO SCH ×3 (08:52→21:20)
[2017-03-26] MEDS: CHOLECALCIFEROL 2,000 UNIT CAP PO SCH (08:52)
--- NOTE | 2017-03-26 10:43 | CONS ---
Date/Time of Note Date/Time of Note DATE: 03/26/17 TIME: 10:38 Consult Date/Type/Reason Admit Date/Time Mar 25, 2017 at 07:37 Initial Consult Date 03/17/2017 Type of Consultation: internal medicine consultation Reason for Consultation medical f/u and management Ordering Provider: NAVI TEE Subjective complaining of cold sore on lip.hip doing well Objective Vital Signs Date Time Temp Pulse Resp B/P Pulse Ox O2 Delivery O2 Flow Rate FiO2 03/26/17 07:52 98.3 80 18 122/75 98 03/25/17 18:30 Room Air 03/25/17 16:33 21 03/25/17 15:06 2.0 Intake and Output 03/25/17 03/25/17 03/26/17 15:00 23:00 07:00 Intake Total 3000 ml 180 ml 2700 ml Output Total 350 ml 1800 ml 2300 ml Balance 2650 ml -1620 ml 400 ml Exam vss heent negative save for sore on upper r lip lungs cleat heart regular rhythm abdomen soft Results/Medications Result Diagram: 03/26/17 0445 03/26/17 0445 Results 24 hrs Laboratory Tests Test 03/26/17 04:45 White Blood Count 14.3 H Red Blood Count 4.57 # Hemoglobin 11.6 #L Hematocrit 36.0 #L Mean Corpuscular Volume 78.8 L Mean Corpuscular Hemoglobin 25.4 L Mean Corpuscular Hemoglobin Concent 32.2 Red Cell Distribution Width 13.5 Platelet Count 307 Mean Platelet Volume 10.7 #H Neutrophils % 84.8 H Lymphocytes % 9.6 L Monocytes % 5.0 Eosinophils % 0.0 Basophils % 0.1 Nucleated Red Blood Cells % 0.0 Neutrophils # 12.2 H Lymphocytes # 1.4 Monocytes # 0.7 Eosinophils # 0.0 Basophils # 0.0 Nucleated Red Blood Cells # 0.0 Sodium Level 138 Potassium Level 4.4 Chloride Level 105 Carbon Dioxide Level 24 Anion Gap 13 Blood Urea Nitrogen 17 Creatinine 0.80 Glucose Level 124 Calcium Level 9.0 Medications Current Medications Morphine Sulfate (morphine) 2 mg Q2H PRN IV PAIN LEVEL 1-5; Start 03/25/17 at 13:30 Morphine Sulfate (morphine) 4 mg Q2H PRN IV PAIN LEVEL 6-10; Start 03/25/17 at 13:30 Diphenhydramine HCl (Benadryl) 25 mg Q4H PRN IV PRURITUS; Start 03/25/17 at 13 :30 Nalbuphine HCl (Nubain) 10 mg Q4H PRN IV PRURITUS; Start 03/25/17 at 13:30 Ondansetron HCl (Zofran Inj) 4 mg Q6H PRN IV NAUSEA AND/OR VOMITING; Start at 13:30 Trimethobenzamide HCl (Tigan) 200 mg Q6H PRN IM NAUSEA AND/OR VOMITING; Start 03/25/17 at 13:30 Naloxone HCl (Narcan) 0.2 mg Q2M PRN IV FOR RESP RATE 8 OR LESS; Start at 13:30 Cholecalciferol (Vitamin D) 2,000 unit DAILY PO Last administered on 08:52; Admin Dose 2,000 UNIT; Start 03/26/17 at 09:00 Gabapentin (Neurontin) 100 mg TID PO Last administered on 03/26/17 08:52; Admin Dose 100 MG; Start 03/25/17 at 21:00 Senna/Docusate Sodium (Senokot-S) 1 tab BID PO Last administered on 03/26/17 08:52; Admin Dose 1 TAB; Start 03/25/17 at 15:00 Simethicone (Mylicon) 80 mg TID PRN PO DISTENSION/GAS/BLOATING; Start at 15:00 Magnesium Hydroxide 30 ml 30 ml BID PRN PO CONSTIPATION; Start 03/25/17 at 15: 00 Lactated Ringer's (Lr) 1,000 ml @ 100 mls/hr Q10H IV Last administered on 04:00; Admin Dose 100 MLS/HR; Start 03/25/17 at 14:45 Aspirin (Ecotrin) 325 mg BID PO Last administered on 03/26/17 08:50; Admin Dose 325 MG; Start 03/26/17 at 09:00 Hydromorphone HCl (Dilaudid) 1 mg Q3H PRN IV PAIN LEVEL 4-7 Last administered on 03/26/17 03:56; Admin Dose 1 MG; Start 03/25/17 at 15:00 Hydromorphone HCl 2 mg 2 mg Q4H PRN PO PAIN Last administered on 03/26/17 08: 52; Admin Dose 2 MG; Start 03/25/17 at 15:30 Clindamycin HCl/ Dextrose (Cleocin 600 Mg/ D5W (Pmx)) 50 ml @ 50 mls/hr Q8 IVPB Last administered on 03/26/17 05:33; Admin Dose 50 MLS/HR; Start 03/25/17 at 22:00 Patient Own Medication 1 ea BID PO Last administered on 03/26/17 08:51; Admin Dose 1 EA; Start 03/25/17 at 21:00 Assessment/Plan Chief Complaint/Hosp Course congestion post op thr revision right Problems: Additional Assessment/Plan plan will order zovirax and continue rest of medications doing well in general. thank you DAVID Harrison MD Mar 26, 2017 10:43
--- NOTE | 2017-03-26 11:57 | PN ---
Date/Time of Note Date/Time of Note DATE: 03/26/17 TIME: 11:55 Assessment/Plan VTE Prophylaxis VTE Prophylaxis Intervention: ambulation, SCD's, other Lines/Catheters IV Catheter Type (from Nrsg): Saline Lock Urinary Cath still in place: Yes Reason Cath still needed: skin wounds contaminated by urine Subjective 24 Hr Interval Summary Free Text/Dictation Rach is doing well after her right hip revision. She does report pain for which she has been taking oral pain medication. She is ambulatory with a walker. The dressing is clean and dry. There is no neurovascular deficit. She would like to stay 1 more day to do stairs before she goes home. She will be discharged tomorrow with home health care. Exam/Review of Systems Vital Signs Vitals Vital Signs Date Time Temp Pulse Resp B/P Pulse Ox O2 Delivery O2 Flow Rate FiO2 03/26/17 07:52 98.3 80 18 122/75 98 03/25/17 18:30 Room Air 03/25/17 16:33 21 03/25/17 15:06 2.0 Intake and Output 03/25/17 03/25/17 03/26/17 14:59 22:59 06:59 Intake Total 3000 ml 180 ml 2700 ml Output Total 350 ml 1800 ml 2300 ml Balance 2650 ml -1620 ml 400 ml Results Result Diagram: 03/26/17 0445 03/26/17 0445 Results 24 hrs Laboratory Tests Test 03/26/17 04:45 White Blood Count 14.3 H Red Blood Count 4.57 # Hemoglobin 11.6 #L Hematocrit 36.0 #L Mean Corpuscular Volume 78.8 L Mean Corpuscular Hemoglobin 25.4 L Mean Corpuscular Hemoglobin Concent 32.2 Red Cell Distribution Width 13.5 Platelet Count 307 Mean Platelet Volume 10.7 #H Neutrophils % 84.8 H Lymphocytes % 9.6 L Monocytes % 5.0 Eosinophils % 0.0 Basophils % 0.1 Nucleated Red Blood Cells % 0.0 Neutrophils # 12.2 H Lymphocytes # 1.4 Monocytes # 0.7 Eosinophils # 0.0 Basophils # 0.0 Nucleated Red Blood Cells # 0.0 Sodium Level 138 Potassium Level 4.4 Chloride Level 105 Carbon Dioxide Level 24 Anion Gap 13 Blood Urea Nitrogen 17 Creatinine 0.80 Glucose Level 124 Calcium Level 9.0 Medications Medications Current Medications Morphine Sulfate (morphine) 2 mg Q2H PRN IV PAIN LEVEL 1-5; Start 03/25/17 at 13:30 Morphine Sulfate (morphine) 4 mg Q2H PRN IV PAIN LEVEL 6-10; Start 03/25/17 at 13:30 Diphenhydramine HCl (Benadryl) 25 mg Q4H PRN IV PRURITUS; Start 03/25/17 at 13 :30 Nalbuphine HCl (Nubain) 10 mg Q4H PRN IV PRURITUS; Start 03/25/17 at 13:30 Ondansetron HCl (Zofran Inj) 4 mg Q6H PRN IV NAUSEA AND/OR VOMITING; Start at 13:30 Trimethobenzamide HCl (Tigan) 200 mg Q6H PRN IM NAUSEA AND/OR VOMITING; Start 03/25/17 at 13:30 Naloxone HCl (Narcan) 0.2 mg Q2M PRN IV FOR RESP RATE 8 OR LESS; Start at 13:30 Cholecalciferol (Vitamin D) 2,000 unit DAILY PO Last administered on 08:52; Admin Dose 2,000 UNIT; Start 03/26/17 at 09:00 Gabapentin (Neurontin) 100 mg TID PO Last administered on 03/26/17 08:52; Admin Dose 100 MG; Start 03/25/17 at 21:00 Senna/Docusate Sodium (Senokot-S) 1 tab BID PO Last administered on 03/26/17 08:52; Admin Dose 1 TAB; Start 03/25/17 at 15:00 Simethicone (Mylicon) 80 mg TID PRN PO DISTENSION/GAS/BLOATING; Start at 15:00 Magnesium Hydroxide 30 ml 30 ml BID PRN PO CONSTIPATION; Start 03/25/17 at 15: 00 Lactated Ringer's (Lr) 1,000 ml @ 100 mls/hr Q10H IV Last administered on 04:00; Admin Dose 100 MLS/HR; Start 03/25/17 at 14:45 Aspirin (Ecotrin) 325 mg BID PO Last administered on 03/26/17 08:50; Admin Dose 325 MG; Start 03/26/17 at 09:00 Hydromorphone HCl (Dilaudid) 1 mg Q3H PRN IV PAIN LEVEL 4-7 Last administered on 03/26/17 03:56; Admin Dose 1 MG; Start 03/25/17 at 15:00 Hydromorphone HCl 2 mg 2 mg Q4H PRN PO PAIN Last administered on 03/26/17 08: 52; Admin Dose 2 MG; Start 03/25/17 at 15:30 Clindamycin HCl/ Dextrose (Cleocin 600 Mg/ D5W (Pmx)) 50 ml @ 50 mls/hr Q8 IVPB Last administered on 03/26/17 05:33; Admin Dose 50 MLS/HR; Start 03/25/17 at 22:00 Patient Own Medication 1 ea BID PO Last administered on 03/26/17 08:51; Admin Dose 1 EA; Start 03/25/17 at 21:00 Acyclovir (Zovirax) 400 mg TID PO ; Start 03/26/17 at 13:00 YUKI NICOLE Mar 26, 2017 11:57
[2017-03-26] MEDS: ACYCLOVIR 400 MG TAB PO SCH ×2 (12:15→21:20)
[2017-03-26 14:51] VITALS: BP 130/68; RESP 21
[2017-03-26 19:35] VITALS: BP 126/67; RESP 18
[2017-03-27] MEDS: HYDROmorphONE 1 MG/ML SYG IV PRN ×2 (01:57→07:30)
[2017-03-27 02:00] VITALS: BP 145/70; RESP 18
[2017-03-27 05:20] LABS: BASOPHILS % 0.2 % (0.0-2.0); EOSINOPHILS # 0.2 10^3/ul (0.0-0.5); EOSINOPHILS % 1.6 % (0.0-7.0); HEMOGLOBIN 11.8 g/dl (12.0-16.0); LYMPHOCYTES # 3.3 10^3/ul (0.8-2.9); LYMPHOCYTES % 24.9 % (15.0-51.0); MEAN CORPUSCULAR HEMOGLOBIN 25.2 pg (29.0-33.0); MEAN CORPUSCULAR HGB CONC 31.9 g/dl (32.0-37.0); MEAN CORPUSCULAR VOLUME 78.9 fl (82.0-101.0); MEAN PLATELET VOLUME 10.6 fl (7.4-10.4); MONOCYTE # 1.1 10^3/ul (0.3-0.9); MONOCYTES % 8.6 % (0.0-11.0); NEUTROPHIL # 8.4 10^3/ul (1.6-7.5); NEUTROPHILS % 64.1 % (39.0-77.0); PLATELET COUNT 285 10^3/UL (140-415); RED BLOOD COUNT 4.69 10^6/ul (4.20-5.40); RED CELL DISTRIBUTION WIDTH 14.2 % (11.5-14.5); WHITE BLOOD COUNT 13.1 10^3/ul (4.8-10.8)
[2017-03-27 05:50] LABS: CREATININE 0.98 mg/dl (0.44-1.00); POTASSIUM 4.6 mmol/L (3.5-5.1)
[2017-03-27] MEDS: CLINDAMYCIN 600 MG/D5W (PMX) 50 ML IVPB SCH ×2 (06:36→13:38)
[2017-03-27] MEDS: LACTATED RINGER'S 1,000 ML IV SCH ×2 (06:45→16:45)
[2017-03-27] MEDS: HYDROmorphONE 2 MG TAB PO PRN ×2 (07:41→13:37)
[2017-03-27 07:52] VITALS: BP 131/73; RESP 18
[2017-03-27] MEDS: ASPIRIN (EC) 325 MG TAB PO SCH (08:39)
[2017-03-27] MEDS: ACYCLOVIR 400 MG TAB PO SCH ×2 (08:39→13:37)
[2017-03-27] MEDS: SENNA/DOCUSATE NA (8.6MG/50MG) TAB PO SCH (08:39)
[2017-03-27] MEDS: CHOLECALCIFEROL 2,000 UNIT CAP PO SCH (08:39)
[2017-03-27] MEDS: GABAPENTIN 100 MG CAP PO SCH ×2 (08:39→13:37)
[2017-03-27] MEDS: PATIENT'S OWN MEDICATION PO SCH (08:40)
--- NOTE | 2017-03-27 09:52 | PN ---
Date/Time of Note Date/Time of Note DATE: 03/27/17 TIME: 09:51 Assessment/Plan VTE Prophylaxis VTE Prophylaxis Intervention: ambulation, SCD's Lines/Catheters IV Catheter Type (from Nrsg): Saline Lock Conn in Place (from Nrsg): Yes Assessment/Plan Assessment/Plan -Pain Meds as needed -ASA for DVT Prophylaxis x 6 weeks outpatient discussed. -Continue monitoring as outpatient on discharge -Follow-up at scheduled postop outpatient appointment or sooner if there is any issue. -Hip precautions discussed -Patient Stable -Discharge to Home with home health Subjective 24 Hr Interval Summary 62-year-old female postop day 2 status post right total hip revision. Denies any acute overnight events. Pain currently controlled with pain medication. Denies any chest pain/tightness. Denies any calf pain. Exam/Review of Systems Vital Signs Vitals Vital Signs Date Time Temp Pulse Resp B/P Pulse Ox O2 Delivery O2 Flow Rate FiO2 03/27/17 07:52 98.1 82 18 131/73 96 03/25/17 18:30 Room Air 03/25/17 16:33 21 03/25/17 15:06 2.0 Intake and Output 03/26/17 03/26/17 03/27/17 15:00 23:00 07:00 Intake Total 750 ml 800 ml 700 ml Output Total 1000 ml 1800 ml Balance 750 ml -200 ml -1100 ml Exam Free Text/Dictation -No complications with dressing intact. -Thigh soft -5/5 Quadriceps, Tibialis Anterior, EHL Gastrocnemius/Soleus and Peroneals -Normal Sensation -Palpable DP/PT, Capillary Refill <2 secs -No Distal Edema -Negative Robert Sign/No calf pain -Toes Freely Movable Results Result Diagram: 03/27/17 0453 03/27/17 0453 JANET KRUGER PA-C Mar 27, 2017 09:52
--- NOTE | 2017-03-27 09:53 | PDOCDIS ---
Discharge Instructions DIAGNOSIS Discharge Diagnosis Status post right total hip revision CONDITION Patient Condition: Good HOME CARE INSTRUCTIONS: Diet Instructions: RegularSpecial Diet: REGULAR ACTIVITY: Activity Restrictions: Slowly Increase Activity Rest between Activity Avoid heavy lifting No Sexual Activity Do not Drive Do not operate Machinery Do not operate Power Tool Avoid Heavy Housework Keep Limb Elevated (May apply cold therapy to the wound.) Weight Bearing (Weight-bear as tolerated using front wheeled walker.) Bathing Restrictions: Shower (Keep surgical area dry and intact. Do not remove surgical dressing until postoperative appointment.) FOLLOW UP/APPOINTMENTS Follow-up Plan Follow-up at postoperative appointment provided to you at your preoperative visit. JANET KRUGER PA-C Mar 27, 2017 09:53
--- NOTE | 2017-03-27 10:07 | CONS ---
Date/Time of Note Date/Time of Note DATE: 03/27/17 TIME: 10:04 Consult Date/Type/Reason Admit Date/Time Mar 25, 2017 at 07:37 Initial Consult Date 03/17/2017 Type of Consultation: internal medicine consultation Reason for Consultation medical f/u Ordering Provider: NAVI TEE Subjective doingmuch better ambulating with pt Objective Vital Signs Date Time Temp Pulse Resp B/P Pulse Ox O2 Delivery O2 Flow Rate FiO2 03/27/17 07:52 98.1 82 18 131/73 96 03/25/17 18:30 Room Air 03/25/17 16:33 21 03/25/17 15:06 2.0 Intake and Output 03/26/17 03/26/17 03/27/17 15:00 23:00 07:00 Intake Total 750 ml 800 ml 700 ml Output Total 1000 ml 1800 ml Balance 750 ml -200 ml -1100 ml Exam vss heent negative lungs clear heart regular rhythm abd.soft Results/Medications Result Diagram: 03/27/17 0453 03/27/17 0453 Results 24 hrs Laboratory Tests Test 03/27/17 04:53 White Blood Count 13.1 H Red Blood Count 4.69 Hemoglobin 11.8 L Hematocrit 37.0 Mean Corpuscular Volume 78.9 L Mean Corpuscular Hemoglobin 25.2 L Mean Corpuscular Hemoglobin Concent 31.9 L Red Cell Distribution Width 14.2 Platelet Count 285 Mean Platelet Volume 10.6 H Neutrophils % 64.1 Lymphocytes % 24.9 Monocytes % 8.6 Eosinophils % 1.6 Basophils % 0.2 Nucleated Red Blood Cells % 0.0 Neutrophils # 8.4 H Lymphocytes # 3.3 H Monocytes # 1.1 H Eosinophils # 0.2 Basophils # 0.0 Nucleated Red Blood Cells # 0.0 Sodium Level 141 Potassium Level 4.6 Chloride Level 104 Carbon Dioxide Level 29 Anion Gap 13 Blood Urea Nitrogen 19 Creatinine 0.98 Glucose Level 100 Calcium Level 9.0 Medications Current Medications Morphine Sulfate (morphine) 2 mg Q2H PRN IV PAIN LEVEL 1-5; Start 03/25/17 at 13:30 Morphine Sulfate (morphine) 4 mg Q2H PRN IV PAIN LEVEL 6-10; Start 03/25/17 at 13:30 Diphenhydramine HCl (Benadryl) 25 mg Q4H PRN IV PRURITUS; Start 03/25/17 at 13 :30 Nalbuphine HCl (Nubain) 10 mg Q4H PRN IV PRURITUS; Start 03/25/17 at 13:30 Ondansetron HCl (Zofran Inj) 4 mg Q6H PRN IV NAUSEA AND/OR VOMITING; Start at 13:30 Trimethobenzamide HCl (Tigan) 200 mg Q6H PRN IM NAUSEA AND/OR VOMITING; Start 03/25/17 at 13:30 Naloxone HCl (Narcan) 0.2 mg Q2M PRN IV FOR RESP RATE 8 OR LESS; Start at 13:30 Cholecalciferol (Vitamin D) 2,000 unit DAILY PO Last administered on 08:39; Admin Dose 2,000 UNIT; Start 03/26/17 at 09:00 Gabapentin (Neurontin) 100 mg TID PO Last administered on 03/27/17 08:39; Admin Dose 100 MG; Start 03/25/17 at 21:00 Senna/Docusate Sodium (Senokot-S) 1 tab BID PO Last administered on 03/27/17 08:39; Admin Dose 1 TAB; Start 03/25/17 at 15:00 Simethicone (Mylicon) 80 mg TID PRN PO DISTENSION/GAS/BLOATING; Start at 15:00 Magnesium Hydroxide 30 ml 30 ml BID PRN PO CONSTIPATION; Start 03/25/17 at 15: 00 Lactated Ringer's (Lr) 1,000 ml @ 100 mls/hr Q10H IV Last administered on 04:00; Admin Dose 100 MLS/HR; Start 03/25/17 at 14:45 Aspirin (Ecotrin) 325 mg BID PO Last administered on 03/27/17 08:39; Admin Dose 325 MG; Start 03/26/17 at 09:00 Hydromorphone HCl (Dilaudid) 1 mg Q3H PRN IV PAIN LEVEL 4-7 Last administered on 03/27/17 01:57; Admin Dose 1 MG; Start 03/25/17 at 15:00 Hydromorphone HCl 2 mg 2 mg Q4H PRN PO PAIN Last administered on 03/27/17 07: 41; Admin Dose 2 MG; Start 03/25/17 at 15:30 Clindamycin HCl/ Dextrose (Cleocin 600 Mg/ D5W (Pmx)) 50 ml @ 50 mls/hr Q8 IVPB Last administered on 03/27/17 06:36; Admin Dose 50 MLS/HR; Start 03/25/17 at 22:00 Patient Own Medication 1 ea BID PO Last administered on 03/27/17 08:40; Admin Dose 1 EA; Start 03/25/17 at 21:00 Acyclovir (Zovirax) 400 mg TID PO Last administered on 03/27/17 08:39; Admin Dose 400 MG; Start 03/26/17 at 13:00 Assessment/Plan Chief Complaint/Hosp Course congestion post op thr revision right Problems: Additional Assessment/Plan patient going home today rx for zovirax and biaxin given. thank you DAVID Brooks MD Mar 27, 2017 10:07
[2017-03-27 14:59] VITALS: BP 140/73; RESP 18
--- NOTE | 2017-03-30 08:19 | DS ---
Date/Time of Note Date/Time of Note DATE: 03/30/17 TIME: 08:17 Discharge Summary Admission/Discharge Info Admit Date/Time Mar 25, 2017 at 07:37 Discharge Date/Time Mar 27, 2017 at 18:10 Discharge Diagnosis Status post right total hip revision Patient Condition: Good Hospital Course On the day of admission, the patient underwent right total hip revision Intraoperative complications: None Postoperative complications: None The patient was given prophylactic antibiotics and anticoagulants. On the day of surgery and first postoperative day patient was started on gait training and was taught usual restrictions following hip replacement On postoperative day 1 dressing was clean dry and intact. No complications were observed. On the day of discharge, the wound was clean and healing well; there was no sign of infection. Wound care instructions were discussed with the patient. Discharge Temperature: 98.9 Discharge White Blood Cell Count: 13.1 Discharge Hemoglobin: 11.8 The patient was discharged home with home health. Arrangements were made for visiting nurses and home health/physical therapy. The patient will be seen in office at scheduled postoperative evaluation date given on their preoperative exam. Should patient complain of any problems prior to scheduled postoperative evaluation date, they may call into outpatient clinic to determine if they need to be scheduled at sooner appointment to be seen immediately if needed. Discharge medications: As per medication reconciliation form Diet: Same as preadmission diet. This is Janet Armas PA-C dictating discharge summary for Dr. Alfred. Home Meds Reported Medications Cholecalciferol (Vitamin D3) (VITAMIN D-3) 2,000 Unit Capsule, 2000 UNIT PO DAILY, CAP 03/25/17 Hydromorphone Hcl* (Dilaudid*) 2 Mg Tablet, 2 MG PO TID Y for PAIN, TAB 03/25/17 Gabapentin* (Gabapentin*) 100 Mg Capsule, 100 MG PO TID, #90 CAP 03/25/17 Benazepril Hcl* (Benazepril Hcl*) 40 Mg Tablet, 40 MG PO BID, #30 TAB pt will take her own medication 03/25/17 Discontinued Reported Medications Benazepril Hcl* (Lotensin*) 40 Mg Tablet 02/22/13 Follow-up Plan Follow-up at postoperative appointment provided to you at your preoperative visit. Primary Care Provider Julia Thomas Pending Labs Laboratory Tests Test 03/29/17 10:19 Lab Scanned Report REFERENCE [id number] JANET KRUGER PA-C Mar 30, 2017 08:19
== END 2017-03-27 18:10 | disposition home health service (06) | DRG 468 ==
LOC: REC 07:37 → MS1 17:40
PROVIDERS: ADMIT Orthopaedic Surgery; ATTEND Orthopaedic Surgery
PROC: 0SP90JZ Removal of Synthetic Substitute from Right Hip Joint, Open Approach (ICD-10-PCS; 2017-03-25)
PROC: 0SR904A Replacement of Right Hip Joint with Ceramic on Polyethylene Synthetic Substitute, Uncemented, Open Approach (ICD-10-PCS; principal; 2017-03-25 11:00)
DX: T84.89XA Other specified complication of internal orthopedic prosthetic devices, implants and grafts, initial encounter (principal); Z96.643 Presence of artificial hip joint, bilateral; I10 Essential (primary) hypertension; T84.84XA Pain due to internal orthopedic prosthetic devices, implants and grafts, initial encounter; Y79.2 Prosthetic and other implants, materials and accessory orthopedic devices associated with adverse incidents
CPT/HCPCS: 80048; 85025; 86850; 86900; 86901; 87086; 88300; 94664; 97116; 97162; 97530; C1776; J0690; J1100; J1170; J1200; J2175; J2250; J2274; J2405; J2710; J3010; J3370; J7120

== ENCOUNTER → 2017-04-15 | Outpatient (CLI) | END | disposition home or self-care (01) ==

== ENCOUNTER → 2017-07-15 | Outpatient (CLI) | END | disposition home or self-care (01) ==

== ENCOUNTER → 2017-08-10 | Outpatient (CLI) | END | disposition home or self-care (01) ==

== ENCOUNTER → 2017-11-02 | Outpatient (CLI) | END | disposition home or self-care (01) ==

== ENCOUNTER → 2017-11-03 | Outpatient (CLI) | END | disposition home or self-care (01) ==

== ENCOUNTER 2017-11-12 09:30 | Inpatient (IN) | END 2017-11-15 16:00 | disposition home or self-care (01) | DRG 468 ==

== ENCOUNTER → 2017-11-23 | Outpatient (CLI) | END | disposition home or self-care (01) ==

== ENCOUNTER → 2017-12-21 | Outpatient (CLI) | END | disposition home or self-care (01) ==

== ENCOUNTER → 2018-02-15 | Outpatient (CLI) | END | disposition home or self-care (01) ==

== ENCOUNTER → 2018-06-16 | Outpatient (CLI) | payer MEDICARE ==
[~2018-06-16] MED LIST changes: +ASPI325T32 PO; -BENA40TA54; +BENA40TA56 PO; +BUPR-165 PO; +CHOL200073 PO; +FERR1TAB14 PO; +GABA100C14 PO; +GABA300C16 PO; +HYDR2TAB36 PO
--- NOTE | 2018-06-16 20:01 | PN ---
DATE: 06/16/2018 HISTORY OF PRESENT ILLNESS: This is a 63-year-old female with a history of bilateral hip replacement revisions. She is here for followup. She is for her right hip. She states that she still has some pain. She is needing a cane to walk. She has been taking Dilaudid as needed for pain medication. She can also take aspirin for pain that she tolerates well and says it helps her some. She states sh e has had no recent trauma, no fevers, no chills, but her pain continues to be persistent. She did h ave her left hip replaced, revised again with an anterior approach and that was doing okay. She is c omplaining of mild lateral thigh numbness, but no weakness, improved pain. PHYSICAL EXAMINATION: GENERAL: The patient is well-developed, well-nourished, in no acute distress. MUSCULOSKELETAL: Her right hip skin is intact with no edema, no erythema, no drainage. She is tende r to palpation along the greater trochanter. She also has some tenderness of the groin. With flexio n and external rotation, she has pain at the groin and some of the greater trochanter and mild pain w ith flexion and internal rotation. She is neurovascularly intact. IMAGING: X-rays were reviewed that were taken today and when compared to previous x-rays of the [facility] hips, revision hip arthroplasty hardware looks well aligned and intact without evidence of loos ening or fracture or any complication. ASSESSMENT: A 63-year-old female with history of bilateral hip replacement revisions with continued pain on the right side, possibly from metal reaction. PLAN: An MRI of the pelvis without contrast MARS protocol for serum cobalt and chromium level draw. Dr. Alfred refilled opioid medication stressing the importance of not taking consistently only for breakthrough pain. The patient will get her MRI and lab levels and follow up next month clinic to re view the results. Dictated By: DESTIN MAXWELL PA-C for NAVI HERNANDEZ/MARIELA Conf#: [id number] DID#: [id number]
--- NOTE | 2018-06-17 16:20 | RADRPT ---
PROCEDURE: XR Hip. CLINICAL INDICATION: PAIN TECHNIQUE: AP and frog lateral views of the right hip were performed. COMPARISON: HIP 02/15/2018; WADE HIP 11/12/2017; HIP 02/05/2017; GIUSEPPE HIP 04/17/2016 FINDINGS: Right hip arthroplasty appears intact and stable compared to prior exams. No evidence of periprosthet ic fracture. Diffuse osteopenia. Normal soft tissues. IMPRESSION: Right hip arthroplasty without evidence of acute hardware complication. RPTAT:AAJJ Physician Kiki Date Time Electronically viewed and signed by Jhoan Mtz Physician on 06/17/2018 16:20 RF/
--- NOTE | 2018-06-17 16:21 | RADRPT ---
PROCEDURE: Pelvis x-ray CLINICAL INDICATION: PAIN TECHNIQUE: 2 views of the pelvis performed. COMPARISON: DRDRGIUSEPPE HIP 11/12/2017; CR PELVIS 08/21/2016 FINDINGS: Bilateral hip arthroplasties appear intact with interval revision on the left. No periprosthetic frac ture. Diffuse osteopenia. No focal soft tissue abnormality. IMPRESSION: Bilateral hip arthroplasties, with interval revision of the left compared to prior pelvis radiograph. No evidence of acute hardware complication. RPTAT:AAJJ Physician Kiki Date Time Electronically viewed and signed by Jhoan Mtz Physician on 06/17/2018 16:21 RF/
== END | disposition home or self-care (01) ==
LOC: HKI 08:20
PROVIDERS: ATTEND Orthopaedic Surgery
DX: Z09 Encounter for follow-up examination after completed treatment for conditions other than malignant neoplasm (principal); Z96.641 Presence of right artificial hip joint; Z96.643 Presence of artificial hip joint, bilateral
CPT/HCPCS: 72170; 73502; 73521; G0463